=== PATIENT | female | born 1990 | race Caucasian/White ===

== ENCOUNTER 2022-12-12 11:41 | Emergency (ER) | payer BC, OTHER ==
[2022-12-12 11:47] VITALS: BP 140/70; PULSE 84; RESP 18; TEMP 98.7; BMI 23.8
== END 2022-12-12 12:36 | disposition home or self-care (01) ==
LOC: JERFT 11:41
DX: O26.891 Other specified pregnancy related conditions, first trimester (principal); R10.9 Unspecified abdominal pain; Z3A.00 Weeks of gestation of pregnancy not specified
CPT/HCPCS: 99283-25